=== PATIENT | male | born 1950 | race Caucasian/White ===

== ENCOUNTER 2021-03-24 06:53 | Outpatient (CLI) | payer MEDICARE, OTHER ==
[~2021-03-24] VITALS: Ht 180.3 cm; Wt 113.6 kg
[2021-03-24] VITALS (10 sets, daily range): BP systolic 108–142; BP diastolic 46–69
[2021-03-24] MEDS ORDERED: LIDOCAINE 1% Multi-Dose 20 ML VIAL. ONE (07:35)
[2021-03-24] MEDS ORDERED: IODIXANOL 320 MG/ML 100 ML VIAL. ONE (07:36)
[2021-03-24 07:56] LABS: CALCIUM 8.9 mg/dL (8.5-10.1); CREATININE 1.2 mg/dL (0.7-1.3); GFR 59.9; POTASSIUM 4.6 mmol/L (3.5-5.1)
--- NOTE | 2021-03-24 08:00 | PHYS DOC ---
MODERATE SEDATION ASSESSMENT RISKS/ALTERNATIVES Risks/Alternatives Risks and alternatives of this type of sedation and procedure discussed with: RISK/ALTERNATIVES: Patient H & P ON CHART H & P H & P on chart and reviewed for co-morbid conditions and appropriate labs. H&P ON CHART: Yes STATUS PREG STATUS ASSESSED: Yes MEDS/ALLERGIES REVIEWED Meds/Allergies Reviewed Medications and Allergies including time and route of recently administered narcotics and sedatives. MEDS/ALLERGIES REVIEWED: Yes ASA RATING ASA RATING: III AIRWAY ASSESSMENT Airway Assessment Airway patency, oral function limitations, presence of caps, crowns, dentures, partials, and ability to extend neck assessed. AIRWAY ASSESSMENT: Yes MALLAMPATI SCORE MALLAMPATI SCORE: II PRE-SEDATION ASSESSMENT PRE-SEDATION ASSESSMENT: Yes TELMA JAMIL MD Mar 24, 2021 08:00
[2021-03-24 08:01] LABS: PROTHROMBIN TIME PATIENT 14.3 SEC (11.7-14.0)
[2021-03-24 08:09] LABS: BASO # 0.1 x10^3/uL (0.0-0.2); BASO % 1 % (0-3); EOS # 0.1 x10^3/uL (0.0-0.7); EOS % 1 % (0-3); HEMATOCRIT 30.3 % (39.0-53.0); HEMOGLOBIN 10.4 g/dL (13.0-17.5); LYMPH # 1.2 x10^3/uL (1.0-4.8); LYMPH % 13 % (24-48); MEAN CORPUSCULAR HEMOGLOBIN 28 pg (25-35); MEAN CORPUSCULAR HGB CONC 34 g/dL (31-37); MEAN CORPUSCULAR VOLUME 80 fL (79-100); MONO # 0.8 x10^3/uL (0.0-1.1); MONO % 9 % (0-9); NEUT # 6.9 x10^3/uL (1.8-7.7); NEUT % 76 % (31-73); PLATELET COUNT 446 x10^3/uL (140-400); RED BLOOD COUNT 3.78 x10^6/uL (4.30-5.70); RED CELL DISTRIBUTION WIDTH 14.3 % (11.5-14.5)
--- NOTE | 2021-03-24 08:12 | PDOC1 ---
History and Physical Date of Procedure Date of Admission 03/24/21 Procedure Procedure Planned right lower extremity angiography with intervention Indication Indication Nonhealing wound right lower extremity between and first and second toe interspace History of Present Illness Reason for Visit This si a 70 M with diabetes and previous left pop to PT bypass and TMA who underwent complex tibial revascularization percutaneously earlier this year. Ultrasound was concerning for restenosis of this vessel. He returns today for planned angiography with possible intervention for revascularization. Past Medical History Cardiovascular: No pertinent hx, HTN Pulmonary: No pertinent hx Endocrine: Diabetes Past Surgical History Past Surgical History left leg bypass surgery Current Medications Current Medications Current Medications Lidocaine HCl (Lidocaine 1% 20ml Vial) 20 ml STK-MED ONCE .ROUTE ; Start 03/24/21 at 07:35; Stop 03/24/21 at 07:36; Status DC Iodixanol (Visipaque 320) 100 ml STK-MED ONCE .ROUTE ; Start 03/24/21 at 07:36; Stop 03/24/21 at 07:36; Status DC Heparin Sodium/ Sodium Chloride 1,000 ml @ As Directed STK-MED ONCE .ROUTE ; Start 03/24/21 at 07:36; Stop 03/24/21 at 07:36; Status DC Physical Exam Lungs: Clear to auscultation Heart: Regular rate Neuro: Normal speech Psych/Mental Status: Mental status NL Vascular monophasic waveform right PT. no DP signal appreciated Assessment Assessment 1. Diabetes mellitus 2. Peripheral arterial disease- tibial occlusive disease 3. Nonhealing wound interspace right first and second toe Will proceed with angiography and intervention of the right lower extremity today. Depending on findings will likely set up for first toe amputation as the plantar tendon is exposed at the plantar aspect of the first proximal phalanx on the right foot. Patient understands risks of angiography including bleeding, infection, limb loss, cardiopulmonary complications and need for future procedures. TELMA JAMIL MD Mar 24, 2021 08:12
[2021-03-24] MEDS ORDERED: LEVO200T5 PO (08:18)
[2021-03-24] MEDS ORDERED: INSU100V6 SQ (08:18)
[2021-03-24] MEDS ORDERED: FINA5TAB4 PO (08:18)
[2021-03-24] MEDS ORDERED: CLOP75TA PO (08:18)
[2021-03-24] MEDS ORDERED: LISI2.5T12 PO (08:18)
[2021-03-24] MEDS ORDERED: ATEN25TA PO (08:18)
[2021-03-24] MEDS ORDERED: TAMS0.4C97 PO (08:18)
[2021-03-24] MEDS ORDERED: ASPI-630 PO (08:18)
[2021-03-24] MEDS ORDERED: AMOX1TAB10 PO (08:18)
[2021-03-24] MEDS ORDERED: METF10007 PO (08:18)
[2021-03-24] MEDS ORDERED: INSU100V13 SQ (08:18)
[2021-03-24] MEDS ORDERED: ATOR40TA59 PO (08:18)
[2021-03-24] MEDS ORDERED: fentaNYL PF VIAL 100 MCG/2 ML VIAL ONE (08:39)
[2021-03-24] MEDS ORDERED: MIDAZOLAM HCL/PF 2 MG/2 ML VIAL. ONE (08:39)
[2021-03-24] MEDS ORDERED: HEPARIN for IV BOLUS 10,000 UNIT/10 ML VIAL. ONE ×2 (08:39→09:39)
[2021-03-24] MEDS ORDERED: NITROGLYCERIN 200 MCG/2 ML SYRINGE FOR CATH/VASC LAB. ONE ×2 (09:36→10:02)
[2021-03-24] MEDS ORDERED: MIDAZOLAM HCL/PF 2 MG/2 ML VIAL. IV ONE (10:00)
[2021-03-24] MEDS ORDERED: fentaNYL PF VIAL 100 MCG/2 ML VIAL IV ONE (10:00)
[2021-03-24] MEDS ORDERED: LIDOCAINE 1% Multi-Dose 20 ML VIAL. INJ ONE (10:00)
[2021-03-24] MEDS ORDERED: HEPARIN for IV BOLUS 10,000 UNIT/10 ML VIAL. IV ONE (10:00)
[2021-03-24] MEDS ORDERED: IODIXANOL 320 MG/ML 100 ML VIAL. IART ONE (10:00)
[2021-03-24] MEDS ORDERED: NITROGLYCERIN 200 MCG/2 ML SYRINGE FOR CATH/VASC LAB. IART ONE (10:15)
--- NOTE | 2021-03-24 11:06 | PDOC4 ---
OPERATIVE NOTE Date: Date: Mar 24, 2021 Pre-Op Diagnosis: 1. Diabetes mellitus 2. Nonhealing wound right foot s/p debridement 3. Peripheral arterial disease with gangrene Post-Op Diagnosis: Same Procedure Performed: 1. Ultrasound guided access right common femoral artery 2. Moderate sedation, physician supervised 120 minutes 3. Right lower extremity angiography 4. Right posterior tibial artery atherectomy with 1.8 mm pheonix atherectomy device 5. right posterior tibial artery angioplasty with 2.5 mm balloon 6. placement of closure device right common femoral artery 5 Fr Mynx Surgeon: Jacobo Morelos Anesthesia Type: Moderate sedation Blood Loss: Minimal Specimans Obtained: None Findings: There was severe restenosis with multiple tandem lesions in the right posterior tibial artery. After atherectomy and angioplasty there was then improved flow in to the plantar arteries with filling of the first metatarsal branches Complications: None Operative Note: The patient was brought to the [facility] and positioned supine. The right groin was then prepped and draped in standard sterile fashion. The patient was given moderate sedation with a sedation nurse present under physician supervision throughout the entire procedure. A total of 2 mg of Versed and 50 mcg of fentanyl was given with a total sedation time of 120 minutes. The right groin was anesthetized with 1% lidocaine and under ultrasound guidance with an image of the ultrasound saved to the medical record the right common femoral artery was accessed with a micropuncture kit. I then upsized to a five Romanian sheath over a J-wire and had successfully accessed the common femoral into the superficial femoral artery. I then performed step angiography of the right lower extremity which demonstrated restenosis with long segments tandem restenosis of the right posterior tibial artery with reconstitution of the plantar arteries via peroneal collaterals. The posterior tibial artery was patent at its origin for approximately 3 cm. There was a high takeoff of the an terior tibial artery with long segment occlusion of the anterior tibial artery and no reconstitution of the dorsalis pedis or the distal anterior tibial artery at the ankle. The peroneal artery remained widely patent as well as the popliteal and superficial femoral artery. I then administered 12,000 units of heparin and later confirmed a therapeutic ACT prior to performing atherectomy. I then exchanged to a five Romanian by 45 cm sheath over the J-wire. Then using a 018 Navicross and 014 glide advantage to cross the long segment restenosis/ segmental occlusion of the posterior tibial artery I then crossed into the lateral plantar artery and confirmed that I was in true lumen distally via angiography. I then exchanged for an 014 [place] wire. I then performed atherectomy of the entire length of the posterior tibial artery from approximately 3 cm past the takeoff down to the ankle using a 1.8 [place] atherectomy device. I performed two runs of the atherectomy device throughout the entire length. On attempting to remove the atherectomy device the wire kinked which required loss of wire access across the lesion. I then recross the lesion again with the 0.018 navicross catheter and 014 glide advantage into the medial plantar artery and again confirmed true lumen access distally via angiography. I then performed low pressure angioplasty with long inflation of the posterior tibial artery from the ankle up to the proximal portion of the stenosis with a 2.5 mm x 200 mm 014 balloon. I then gave 200 micrograms of nitroglycerin. I then performed completion angiography which showed the posterior tibial artery now is the dominant runoff into the foot with a widely patent artery following intervention without evidence of significant recoil or dissection. There was filling of the lateral and medial plantar artery branches into the first metatarsal at completion. I then exchanged for a short five Romanian sheath and deployed a five Romanian MYNX control in standard fashion. There was a small hematoma from sheath exchange but good hemostasis noted after 10 minutes of direct pressure. At completion of procedure there was a strong monophasic signal in the posterior tibial artery and palpable popliteal pulse with signal in the [employer] being improved from pre intervention. The patient was then transferred to the recovery room in stable condition. JACOBO MORELOS MD Mar 24, 2021 11:06
--- NOTE | 2021-03-24 11:10 | DISCH ---
DISCHARGE INSTRUCTIONS Condition on Discharge Condition on Discharge: Stable Activity After Discharge Activity Instructions for Disc: Resume previous activity Lifting Instructions after Dis: No heavy lifting (for 2 weeks) Driving Instructions after Dis: Do not drive today Weight Bearing Status after Di: Other, see below (non weight bearing right fore foot) Wound Incision Care Wound/Incision Care: Change dressing (continue dressing changes as you were doing previously) Contacting the DR. after DC Call your doctor for: If your condition worsens TELMA JAMIL MD Mar 24, 2021 11:10
[2021-03-24] MEDS ORDERED: HYDROcodone/APAP 5/325MG 1 TAB TABLET PO PRN ×2 (11:15)
--- NOTE | 2021-03-24 13:02 | NUR ---
Discharge Note: MARTIN STONE Discharge instructions and discharge home medications reviewed with Patient and ; and a copy given. All questions have been answered and understanding verbalized. The following instructions and handouts were given: Groin site care and moderate sedation. Discontinued lines and drains: Left FA IV dc'd, tip intact, and bandage applied. Patient discharged to home with via personal vehicle.
== END 2021-03-24 13:05 | disposition home or self-care (01) ==
LOC: CCL 06:53
PROVIDERS: ATTEND Surgery Vascular Surgery
DX: I73.9 Peripheral vascular disease, unspecified (principal); E11.9 Type 2 diabetes mellitus without complications; E03.9 Hypothyroidism, unspecified; I10 Essential (primary) hypertension; Z79.82 Long term (current) use of aspirin; Z79.84 Long term (current) use of oral hypoglycemic drugs; Z79.899 Other long term (current) drug therapy; Z98.890 Other specified postprocedural states
CPT/HCPCS: 36415; 37229; 75710; 76937; 80048; 85025; 85347; 85610; 99152; 99153; C1724; C1725; C1760; C1769; C1887; C1894; J1644; J2250; J3010; J3490; Q9967; G0269